=== PATIENT | male | born 2000 | race Caucasian/White ===

== ENCOUNTER 2024-09-16 23:23 | Emergency (ER) | payer SELFPAY ==
[~2024-09-16] VITALS: Ht 185.4 cm; Wt 64.0 kg
[2024-09-16 23:29] VITALS: O2SAT 98
[2024-09-16 23:39] VITALS: BP 97/70; PULSE 75; RESP 18
[2024-09-17 00:40] VITALS: TEMP 98.7
[2024-09-17] MEDS: ACETAMINOPHEN 500MG TABLET PO ONE (00:40)
[2024-09-17] MEDS: CYCLOBENZAPRINE 10MG TABLET PO ONE (00:40)
[2024-09-17] MEDS ORDERED: ACET-2708 MT (00:58)
== END 2024-09-17 01:15 | disposition home or self-care (01) ==
LOC: ER 23:23
DX: R51.9 Headache, unspecified (principal); V43.52XA Car driver injured in collision with other type car in traffic accident, initial encounter; Y93.89 Activity, other specified; Y92.89 Other specified places as the place of occurrence of the external cause; Y99.8 Other external cause status
CPT/HCPCS: 99283